=== PATIENT | female | born 1995 | race Two or more races ===

== ENCOUNTER 2017-11-03 10:11 | Emergency (ER) | payer MEDICAID ==
[~2017-11-03] VITALS: Ht 162.6 cm; Wt 68.0 kg
[~2017-11-03 10:11] MED LIST: PREN-88 PO
[2017-11-03 11:53] LABS: BASOPHILS % 0.5 % (0.0-2.0); EOSINOPHILS % 0.2 % (0.0-5.0); HEMATOCRIT. 37.4 % (36.0-48.0); HEMOGLOBIN. 12.8 g/dL (12.0-16.0); LYMPHOCYTES % 11.2 % (20.0-50.0); MEAN CORPUSCULAR HEMOGLOBIN 29.4 pg (28.0-32.0); MEAN CORPUSCULAR VOLUME 85.7 fL (81.0-99.0); MEAN PLATELET VOLUME 8.8 fl (7.4-10.4); MONOCYTES % 9.6 % (2.0-8.0); NEUTROPHILS % 78.5 % (40.0-76.0); PLATELET 245 x1000/uL (130-400); RED BLOOD CELL COUNT 4.36 mill/uL (4.2-5.4); RED CELL DISTRIBUTION WIDTH 14.7 % (11.6-14.6)
[2017-11-03 11:56] LABS: PROTHROMBIN TIME 10.7 sec (9.4-11.6)
[2017-11-03 12:06] LABS: CHLORIDE 99 mEq/L (98-107)
[2017-11-03] MEDS ORDERED: SODIUM CHLORIDE 0.9% 1,000 ML IV ONE (14:11)
[2017-11-03] MEDS ORDERED: ONDANSETRON HCL 4MG/2ML VIAL IV STA (14:11)
[2017-11-03 15:27] LABS: HCG SCREEN NEGATIVE
[2017-11-03 15:31] LABS: PROTHROMBIN TIME 10.7 sec (9.4-11.6)
[2017-11-03] MEDS ORDERED: CEFTRIAXONE 1 G PREMIX 50 ML IV ONE (15:45)
[2017-11-03 16:06] LABS: CLARITY URINE CLOUDY (CLEAR); COLOR URINE YELLOW (YELLOW); KETONES URINE NEGATIVE (NEGATIVE); LEUKOCYTE ESTERASE URINE 3+ (NEGATIVE); NITRITE URINE POSITIVE (NEGATIVE); OCCULT BLOOD URINE TRACE (NEGATIVE); PH URINE 6.5 (4.5-8.0); PROTEIN URINE 1+ (NEGATIVE); SPECIFIC GRAVITY URINE 1.021 (1.005-1.030); UROBILINOGEN URINE 0.2 E.U./dL (0.2-1.0)
[2017-11-03 16:27] VITALS: BP 118/65
== END 2017-11-03 17:29 | disposition home or self-care (01) ==
LOC: ER 10:11
DX: N12 Tubulo-interstitial nephritis, not specified as acute or chronic (principal); R19.7 Diarrhea, unspecified
CPT/HCPCS: 36415; 74176; 80053; 81003; 83690; 84703; 85025; 85610; 87040; 87077; 87086; 87186; 96361; 96365; 96366; 96375; 99285; J0696; J2405; J7030

== ENCOUNTER 2020-07-25 14:55 | Emergency (ER) | payer MEDICAID ==
[~2020-07-25] VITALS: Ht 167.6 cm; Wt 65.0 kg
[2020-07-25] MEDS ORDERED: ACETAMINOPHEN 325MG TABLET PO STA (16:28)
[2020-07-25 17:55] LABS: CLARITY URINE TURBID (CLEAR); COLOR URINE YELLOW (YELLOW); KETONES URINE NEGATIVE (NEGATIVE); LEUKOCYTE ESTERASE URINE 2+ (NEGATIVE); NITRITE URINE NEGATIVE (NEGATIVE); OCCULT BLOOD URINE NEGATIVE (NEGATIVE); PH URINE 8.5 (4.5-8.0); PROTEIN URINE NEGATIVE (NEGATIVE); SPECIFIC GRAVITY URINE 1.021 (1.005-1.030); UROBILINOGEN URINE 0.2 E.U./dL (0.2-1.0)
[2020-07-25 18:13] LABS: *AMPHETAMINES SCREEN URINE NEGATIVE (NEGATIVE); *BARBITURATES SCREEN URINE NEGATIVE (NEGATIVE); *BENZODIAZEPINES SCREEN URINE NEGATIVE (NEGATIVE); *COCAINE SCREEN URINE NEGATIVE (NEGATIVE); METHADONE URINE SCREEN NEGATIVE (NEGATIVE); OPIATES URINE SCREEN NEGATIVE (NEGATIVE); PHENCYCLIDINE URINE SCREEN NEGATIVE (NEGATIVE)
[2020-07-25 18:17] LABS: CANNABINOID URINE SCREEN PRESUMTIVE POSITIVE (NEGATIVE)
[2020-07-25 18:57] LABS: BASOPHILS % 0.6 % (0.0-2.0); EOSINOPHILS % 1.1 % (0.0-5.0); HEMATOCRIT. 36.1 % (36.0-48.0); HEMOGLOBIN. 12.3 g/dL (12.0-16.0); MEAN CORPUSCULAR HEMOGLOBIN 30.9 pg (28.0-32.0); MEAN PLATELET VOLUME 8.8 fl (7.4-10.4); MONOCYTES % 6.1 % (2.0-8.0); NEUTROPHILS % 75.2 % (40.0-76.0); PLATELET 222 x1000/uL (130-400); RED BLOOD CELL COUNT 3.97 mill/uL (4.2-5.4); RED CELL DISTRIBUTION WIDTH 14.2 % (11.6-14.6)
[2020-07-25 19:02] LABS: CHLORIDE 107 mEq/L (98-107)
[2020-07-25 19:07] LABS: PROTHROMBIN TIME 10.1 sec (9.6-11.0)
[2020-07-25 19:26] LABS: B-HCG QUANTITATIVE 92211 mIU/mL (<3)
[2020-07-25 21:29] VITALS: BP 118/77
== END 2020-07-25 21:31 | disposition home or self-care (01) ==
LOC: ER 14:55
DX: O23.41 Unspecified infection of urinary tract in pregnancy, first trimester (principal); Z3A.08 8 weeks gestation of pregnancy; O34.81 Maternal care for other abnormalities of pelvic organs, first trimester; N83.12 Corpus luteum cyst of left ovary; O99.891 Other specified diseases and conditions complicating pregnancy; S81.051A Open bite, right knee, initial encounter; W54.0XXA Bitten by dog, initial encounter; Y35.893A Legal intervention involving other specified means, suspect injured, initial encounter; Y93.89 Activity, other specified; Y92.89 Other specified places as the place of occurrence of the external cause
CPT/HCPCS: 36415; 76801; 80053; 80305; 81003; 81025; 84702; 85025; 86850; 86900; 93971; 99285

== ENCOUNTER 2020-08-02 22:56 | Emergency (ER) | payer MEDICAID ==
[~2020-08-02] VITALS: Ht 167.6 cm; Wt 74.0 kg
[2020-08-02 23:45] LABS: CLARITY URINE CLOUDY (CLEAR); COLOR URINE YELLOW (YELLOW); KETONES URINE NEGATIVE (NEGATIVE); LEUKOCYTE ESTERASE URINE 3+ (NEGATIVE); NITRITE URINE NEGATIVE (NEGATIVE); OCCULT BLOOD URINE NEGATIVE (NEGATIVE); PH URINE 6.5 (4.5-8.0); PROTEIN URINE NEGATIVE (NEGATIVE); SPECIFIC GRAVITY URINE 1.022 (1.005-1.030); UROBILINOGEN URINE 0.2 E.U./dL (0.2-1.0)
[2020-08-03] MEDS ORDERED: BACITRACIN ZINC OINT UDPKT TOP ONE (00:15)
[2020-08-03 01:18] VITALS: BP 124/68
== END 2020-08-03 01:20 | disposition home or self-care (01) ==
LOC: ER 22:56
DX: B37.3 Candidiasis of vulva and vagina (principal); Z87.440 Personal history of urinary (tract) infections
CPT/HCPCS: 81003; 81025; 87210; 99283

== ENCOUNTER 2021-02-26 07:41 | Inpatient (IN) | payer MEDICAID ==
[~2021-02-26] VITALS: Ht 165.1 cm; Wt 91.2 kg
[2021-02-26] MEDS ORDERED: METHYLERGONOVINE MALEATE 0.2 MG/ML IM PRN (10:30)
[2021-02-26] MEDS ORDERED: NALOXONE HCL 0.4 MG/ML 1ML VIAL IM PRN (10:30)
[2021-02-26] MEDS ORDERED: BUTORPHANOL TARTRATE 2 MG/ML VIAL IV PRN (10:30)
[2021-02-26] MEDS ORDERED: LIDOCAINE HCL 1% 20ML VIAL (Pyxis) INJ INFIL SCH (10:30)
[2021-02-26] MEDS ORDERED: OXYTOCIN 20 UNITS in LACTATED RINGERS 1,000 ML IV SCH (10:45)
[2021-02-26] MEDS ORDERED: PENICILLIN G POTASSIUM 5 MMU in DEXT 5% WATER 100 ML IV SCH (11:00)
[2021-02-26 12:37] LABS: BASOPHILS % 0.2 % (0.0-2.0); EOSINOPHILS % 0.7 % (0.0-5.0); HEMATOCRIT. 34.7 % (36.0-48.0); MEAN CORPUSCULAR VOLUME 89.6 fL (81.0-99.0); MEAN PLATELET VOLUME 9.5 fl (7.4-10.4); MONOCYTES % 7.3 % (2.0-8.0); NEUTROPHILS % 78.8 % (40.0-76.0); PLATELET 159 x1000/uL (130-400); RED BLOOD CELL COUNT 3.88 mill/uL (4.2-5.4); RED CELL DISTRIBUTION WIDTH 14.3 % (11.6-14.6)
[2021-02-26 12:37] LABS: CLARITY URINE CLEAR (CLEAR); COLOR URINE YELLOW (YELLOW); KETONES URINE 1+ (NEGATIVE); LEUKOCYTE ESTERASE URINE 3+ (NEGATIVE); NITRITE URINE NEGATIVE (NEGATIVE); OCCULT BLOOD URINE NEGATIVE (NEGATIVE); PH URINE 6.5 (4.5-8.0); PROTEIN URINE NEGATIVE (NEGATIVE); SPECIFIC GRAVITY URINE 1.017 (1.005-1.030); UROBILINOGEN URINE 0.2 E.U./dL (0.2-1.0)
[2021-02-26 12:49] LABS: CHLORIDE 108 mEq/L (98-107)
[2021-02-26 13:04] LABS: *AMPHETAMINES SCREEN URINE NEGATIVE (NEGATIVE); *BARBITURATES SCREEN URINE NEGATIVE (NEGATIVE); *BENZODIAZEPINES SCREEN URINE NEGATIVE (NEGATIVE); *COCAINE SCREEN URINE NEGATIVE (NEGATIVE)
[2021-02-26 13:05] LABS: CANNABINOID URINE SCREEN NEGATIVE (NEGATIVE); METHADONE URINE SCREEN NEGATIVE (NEGATIVE); OPIATES URINE SCREEN NEGATIVE (NEGATIVE); PHENCYCLIDINE URINE SCREEN NEGATIVE (NEGATIVE)
[2021-02-26 13:36] LABS: HEPATITIS B SURFACE ANTIGEN NEGATIVE
[2021-02-26] MEDS: LACTATED RINGERS 1,000 ML IV SCH ×2 (13:37→19:37)
[2021-02-26] MEDS ORDERED: ROPIVACAINE HCL/PF EPIDURAL 200 ML EPI SCH (15:45)
[2021-02-26 16:21] LABS: INR 0.9; PARTIAL THROMBOPLASTIN TIME 28.7 sec (23.4-31.0); PROTHROMBIN TIME 10.2 sec (9.6-11.0)
[2021-02-26] MEDS: PENICILLIN G POTASSIUM 2.5 MMU in DEXTROSE 5% WATER 50 ML IV SCH ×2 (18:24→23:33)
[2021-02-27] MEDS: LACTATED RINGERS 1,000 ML IV SCH ×2 (02:40→06:25)
[2021-02-27] MEDS ORDERED: FENTANYL CITRATE/PF 50MCG/ML 2ML VIAL ONE (06:14)
[2021-02-27] MEDS ORDERED: ROPIVACAINE HCL/PF EPIDURAL 200 ML EPI ONE (06:14)
[2021-02-27] MEDS: PENICILLIN G POTASSIUM 2.5 MMU in DEXTROSE 5% WATER 50 ML IV SCH (06:24)
[2021-02-27] MEDS ORDERED: DEXT 5%/LACTATED RINGERS 1,000 ML IV SCH (09:45)
[2021-02-27] MEDS ORDERED: DEXT 5%/LR + PITOCIN 20UNITS/L 1,000 ML IV SCH ×2 (10:00→10:45)
[2021-02-27] MEDS ORDERED: RHO(D) IMMUNE GLOBULIN 300 MCG/SYR IM PRN (10:45)
[2021-02-27] MEDS ORDERED: BENZOCAINE/LANOLIN/ALOE VERA SPRAY TOP PRN (10:45)
[2021-02-27] MEDS ORDERED: HEMORRHOIDAL SUPP PR PRN (10:45)
[2021-02-27] MEDS ORDERED: DIPHENHYDRAMINE 25MG CAPSULE PO PRN (10:45)
[2021-02-27] MEDS ORDERED: ACETAMINOPHEN WITH CODEINE 300/30MG TABLET PO PRN ×2 (10:45)
[2021-02-27] MEDS ORDERED: LANOLIN OINT 7GM TUBE TOP PRN (10:45)
[2021-02-27] MEDS ORDERED: IBUPROFEN 400MG TABLET PO PRN (10:45)
[2021-02-27] MEDS ORDERED: BISACODYL 10MG SUPP PR PRN (10:45)
[2021-02-27] MEDS ORDERED: GLYCERIN/WITCH HAZEL LEAF MEDICATED PAD TOP PRN (10:45)
[2021-02-27 13:05] VITALS: BP 115/55
[2021-02-27 15:03] VITALS: BP 109/61
[2021-02-27] MEDS: SIMETHICONE 80MG TABLET CHEW PO SCH ×2 (18:16→21:51)
[2021-02-27] MEDS: MAGNESIUM/ALUMINUM HYDROXIDE/SIMETHICONE 30ML UDC PO SCH ×2 (18:17→21:50)
[2021-02-27] MEDS ORDERED: DOCUSATE SODIUM 100MG CAPSULE PO SCH (21:00)
[2021-02-27 22:00] VITALS: BP 113/65
[2021-02-28 05:00] VITALS: BP 115/64
[2021-02-28 06:10] LABS: BASOPHILS % 0.3 % (0.0-2.0); EOSINOPHILS % 0.7 % (0.0-5.0); HEMATOCRIT. 32.9 % (36.0-48.0); HEMOGLOBIN. 11.2 g/dL (12.0-16.0); LYMPHOCYTES % 15.1 % (20.0-50.0); MEAN CORPUSCULAR HEMOGLOBIN 31.1 pg (28.0-32.0); MEAN CORPUSCULAR VOLUME 91.1 fL (81.0-99.0); MEAN PLATELET VOLUME 9.1 fl (7.4-10.4); NEUTROPHILS % 76.9 % (40.0-76.0); PLATELET 148 x1000/uL (130-400); RED BLOOD CELL COUNT 3.61 mill/uL (4.2-5.4); RED CELL DISTRIBUTION WIDTH 14.5 % (11.6-14.6)
[2021-02-28 07:30] VITALS: BP 108/86
[2021-02-28] MEDS: SIMETHICONE 80MG TABLET CHEW PO SCH ×2 (08:00→12:30)
[2021-02-28] MEDS: MAGNESIUM/ALUMINUM HYDROXIDE/SIMETHICONE 30ML UDC PO SCH ×2 (08:00→12:30)
[2021-02-28] MEDS: FERROUS SULFATE 325MG TABLET PO SCH ×2 (08:58→13:28)
[2021-02-28] MEDS ORDERED: PRENATAL VIT/FE FUMARATE/FA TABLET PO SCH (09:00)
[2021-02-28] MEDS ORDERED: IBUP-2028 PO (17:19)
== END 2021-02-28 18:45 | disposition home or self-care (01) | DRG 560 ==
LOC: OBSVTOIN 07:41 → 8 EST LDRP 07:41 → 8 EST A/PP 02-27 13:37 → 8EST 02-27 15:29
PROVIDERS: ADMIT Obstetrics & Gynecology; ATTEND Obstetrics & Gynecology
PROC: 10D07Z6 Extraction of Products of Conception, Vacuum, Via Natural or Artificial Opening (ICD-10-PCS; principal; 2021-02-27)
PROC: 3E0R3BZ Introduction of Anesthetic Agent into Spinal Canal, Percutaneous Approach (ICD-10-PCS; 2021-02-27)
PROC: 00HU33Z Insertion of Infusion Device into Spinal Canal, Percutaneous Approach (ICD-10-PCS; 2021-02-27)
DX: O99.02 Anemia complicating childbirth (principal); Z37.0 Single live birth; D62 Acute posthemorrhagic anemia; Z88.8 Allergy status to other drugs, medicaments and biological substances; Z3A.40 40 weeks gestation of pregnancy
CPT/HCPCS: 36415; 76805; 76818; 80053; 80305; 81003; 85025; 86592; 86703; 86762; 86850; 86900; 87077; 87340; J2540; J2590; J2795; J3010; J7060; J7120; A4315

== ENCOUNTER 2023-01-29 20:10 | Emergency (ER) | payer MEDICAID ==
[~2023-01-29] VITALS: Ht 165.1 cm; Wt 85.3 kg
[~2023-01-29 20:10] MED LIST changes: +IBUP-2028 PO
[2023-01-29 21:02] VITALS: O2SAT 99
[2023-01-29] MEDS ORDERED: ACETAMINOPHEN 325MG TABLET PO ONE (22:30)
[2023-01-29] MEDS ORDERED: IBUPROFEN 400MG TABLET PO ONE (22:30)
[2023-01-29 22:51] VITALS: BP 111/69
[2023-01-29] MEDS ORDERED: CEPH500C2 MT (23:02)
[2023-01-29] MEDS ORDERED: SULF1TAB48 MT (23:02)
[2023-01-29] MEDS ORDERED: CLIN75GE4 TP (23:02)
[2023-01-29 23:36] VITALS: PULSE 85; TEMP 97.5
== END 2023-01-29 23:36 | disposition home or self-care (01) ==
LOC: ER 20:10
DX: L73.2 Hidradenitis suppurativa (principal); Z79.899 Other long term (current) drug therapy
CPT/HCPCS: 81025; 99283; Z7610 ×4